=== PATIENT | male | born 1985 | race Caucasian/White ===

== ENCOUNTER 2017-10-22 08:42 | Emergency (ER) | payer OTHER ==
--- NOTE | 2017-10-22 10:43 | RAD ---
HISTORY: Right knee trauma COMPARISONS: None VIEWS: 4, Frontal, lateral, axial, and oblique views of the right knee FINDINGS: BONE DENSITY: Normal. BONES: There is no displaced fracture. JOINTS: There is no arthropathy. There is no suprapatellar joint effusion or lipohemarthrosis. ALIGNMENT: There is no dislocation. SOFT TISSUES: Unremarkable. OTHER FINDINGS: None. IMPRESSION: NO ACUTE OSSEOUS INJURY. IF SYMPTOMS PERSIST, RECOMMEND REPEAT IMAGING.
[2017-10-22 10:54] VITALS: BP 120/80
--- NOTE | 2017-10-22 11:04 | UC ---
Angel Luis Maldonado Julia, scribed for Angel Luis Ghosh MD on 10/22/17 at 0918 . Lower Extremity/Ankle HPI - HPI Summary HPI Summary: This patient is a 32 year old M presenting to [facility] accompanied by tata with a chief complaint of R proximal tibia pain for the past month when he slipped and hit his R knee on concrete. Patient denies weakness, back pain, hip pain, ankle pain, or posterior knee pain. Symptoms aggravated by persistent dorsiflexion and plantarflexion with driving. Patient has been using knee brace. - History of Current Complaint Chief Complaint: UCLowerExtremity Stated Complaint: LEG PAIN Time Seen by Provider: 10/22/17 09:04 Hx Obtained From: Patient Onset/Duration: Lasting Weeks, Still Present Aggravating Factor(s): Other - driving Able to Bear Weight: Yes Related History: Other - fall - Allergies/Home Medications Allergies/Adverse Reactions: Allergies Allergy/AdvReac Type Severity Reaction Status Date / Time No Known Allergies Allergy Verified 10/22/17 08:51 PMH/Surg Hx/FS Hx/Imm Hx Previously Healthy: Yes - Surgical History Surgical History: None - Family History Known Family History: Positive: Cardiac Disease - FATHER WITH LVAD, DISEASE BEGAN IN HIS 20'S - Social History Alcohol Use: None Substance Use Type: None Smoking Status (MU): Never Smoked Tobacco Have You Smoked in the Last Year: No Review of Systems Musculoskeletal: Negative - back pain, hip pain, posterior knee pain, Other: - positive R knee pain Neurological: Negative - weakness All Other Systems Reviewed And Are Negative: Yes Physical Exam Triage Information Reviewed: Yes Appearance: Well-Appearing, Obese Vital Signs: Initial Vital Signs Temp 97.4 F 10/22/17 08:47 Pulse 96 10/22/17 08:47 Resp 20 10/22/17 08:47 BP 148/75 10/22/17 08:47 Eye Exam: Normal ENT Exam: Normal Neck: Positive: Supple, Nontender Respiratory: Positive: Chest non-tender, Lungs clear, Normal breath sounds Cardiovascular: Positive: RRR, No Murmur Abdomen Description: Positive: Nontender Musculoskeletal Exam: Other - tender over the proximal tibial plateau right leg. No tenderness over the proximal fibula. Neurological Exam: Normal Psychological Exam: Normal Skin Exam: Normal Diagnostics - Radiology R Knee XR Radiology Interpretation Completed By: Radiologist - NO ACUTE OSSEOUS INJURY. IF SYMPTOMS PERSIST, RECOMMEND REPEAT IMAGING. Physician has reviewed this report. Lower Extremity Course/Dx - Course Course Of Treatment: 32 y/o patient presents with R proximal tibial knee pain for jose past s/p fall on concrete. X ray reveals no fracture. Further imaging may be necessary if symptoms persist. - Differential Dx/Diagnosis Provider Diagnoses: knee sprain. knee pain. elevated blood pressure reading Discharge - Discharge Plan Condition: Good Disposition: HOME Prescriptions: Ibuprofen TAB* [Motrin TAB* 600 MG] 600 mg PO Q6H PRN #20 tab PRN Reason: Pain Patient Education Materials: Knee Sprain (ED), Hypertension (ED) Referrals: Corky Junior MD [Primary Care Provider] - 2 Days Corky Villanueva MD [Medical Doctor] - The documentation as recorded by the Angel Luis gregorio Julia accurately reflects the service I personally performed and the decisions made by Davina schmidt Walter, MD.
== END 2017-10-22 11:16 | disposition home or self-care (01) ==
LOC: UCEAST 08:42
DX: S83.91XA Sprain of unspecified site of right knee, initial encounter (principal); M25.561 Pain in right knee; R03.0 Elevated blood-pressure reading, without diagnosis of hypertension; W01.0XXA Fall on same level from slipping, tripping and stumbling without subsequent striking against object, initial encounter
CPT/HCPCS: 99211; G0463